=== PATIENT | female | born 1960 | race Caucasian/White ===

== ENCOUNTER → 2016-09-12 | Outpatient (CLI) | payer OTHER | END | disposition home or self-care (01) | LOC: RAD.S 10:49 → EDSTATUS 11:30 | PROC: 0KB73ZX Excision of Right Upper Arm Muscle, Percutaneous Approach, Diagnostic (ICD-10-PCS; principal; 2016-09-12) | DX: R22.31 Localized swelling, mass and lump, right upper limb (principal); Z85.3 Personal history of malignant neoplasm of breast ==